=== PATIENT | male | born 1970 | race Caucasian/White ===

== ENCOUNTER → 2023-03-06 | Emergency (ER) | payer BC, SELFPAY ==
[~2023-03-06] MED LIST: COLCHICINE 0.6 MG TAB ONE; HYDROCODONE/APAP 10/325 TAB ONE; dexAMETHasone 10 MG/ML VIAL ONE
--- OUTSIDE RECORDS SUMMARY | 2023-03-06 06:44 | XMS REPORT | Continuity of Care Document ---
Author Name Unknown Address [address] [facility] [place] [address] [facility] Address [address] 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 Name Role Phone JENNIFER ARELLANO Primary Care Physician Unavailab ARNIE Pablo V Attending Clinician Unavailable RADIOLOGY Attending Clinician Unavailable Radiology Attending Clinician Unavailable ARNIE SMITH V Admitting Clinician Unavailable Payers Payer Name Policy Type Policy Number Effective Date Expirati on Date Source [facility] [id number] 2019 00:00:00 Allergies, Adverse Reactions, Alerts Allergy Name Allergy Type Status Severity Reaction(s) Onset Date Inactive Date Treating Clinician Comments Source NO KNOWN ALLERGIE S Drug Class Active [facility] Social History Social Habit Start Date Stop Date Quantity Comments Source Sex Assigned At [facility] Exposure to SARS-CoV-2 (event) Not sure [facility] Alcohol intake 2015-01-20 00:00:00 2015-01-20 00:00:00 [facility] Tobacco Comment 2015-01-20 00:00:00 2015-01-20 00:00:00 now uses vapor cigarettes [facility] Smoking Status Start Date Stop Date Source Former smoker 2015-01-20 00:00:00 2015-01-20 00:00:00 [facility] Medications Ordered Medication Name Filled Medication Name Start Date Stop Date Current Medication? Ordering Clinician Indication Dosage Frequency Signature (SIG) Comments Components Source No known medications No [facility] Encounters Start Date/Time End Date/Time Encounter Type Admission Type Attending Clinicians Care Facility Care Department Encounter ID Source 2018-03-03 10:00:00 Inpatient [facility]NIE GARCIA [facility] [id number] [facility] 2022-09-30 08:16:24 2022-09-30 08:16:24 Outpatient [facility] [id number] Jamaal Hollins 2022-03-14 15:57:12 2022-03-14 15:57:12 Outpatient [facility] [id number] Jamaal Hollins 2019-09-22 16:00:00 2019-09-22 16:00:00 Outpatient R RADIOLOGY [facility] [id number] [facility] 2019-09-22 15:51:28 2019-09-22 15:51:28 Outpatient R RADIOLOGY [facility] [id number] [facility] 2019-09-06 14:25:00 2019-09-06 23:59:00 Hospital Encounter Radiology [facility] [id number] 2019-09-06 14:25:00 2019-09-06 23:59:00 Hospital Encounter Radiology [facility] [id number] [facility] 2019-09-06 00:00:00 2019-09-06 23:59:00 Outpatient R RADIOLOGY [facility] [id number] [facility] Results Test Description Test Time Test Comments Results Result Co mments Source LIPID [id number] 06:33:37* Test Item Value Reference Range Interpretation Comme nts CHOLESTEROL (test code = 2210) 230 MG/DL <200 H TRIGLYCERIDES (test code = 2232) 647 MG/DL <150 H HDL CHOLESTEROL (test code = 2220) 30 MG/DL >39 L CALC LDL CHOL (test code = 2237) (NOTE) MG/DL <100 UNABLE TO CALCUL ATE A VALID LDL CHOLESTEROL WHEN THE TRIGLYCERIDEVALUE IS GREATER THAN 400 MG/DL.UNABLE TO CALCULATE A VALID LDL CHOLESTEROL WHEN THE TRIGLYCERIDEVALUE IS GREATER THAN 400 MG/DL. NOTE: CALCULATED LDL IS BASED ON FILIBERTO-TUCKER METHOD WHICHINCLUDES ADJUSTABLE TRIGLYCERIDE:VLDL CHOLESTEROL RATIO.THIS FACTOR VARIES BY MEASURED TRIGLYCERIDE AND NON-HDLCHOLESTEROL CONCENTRATIONS WITH INCREASED CALCULATED LDL SEENIN HIGHER TRIGLYCERIDE OR LOWER NON-HDL SPECIMENS. FOR MOREINFORMATION, SEE CLIENT ANNOUNCEMENT AT [email or web address] CalcLDL-C RISK RATIO LDL/HDL (test code = 2238) (NOTE) RATIO <3.55 UNABLE TO DELROY CULATE PSA, [id number] 06:14:09* Test Item Value Reference Range Interpretation Comme nts PSA, TOTAL (test code = 2606) 0.21 NG/ML See_Comment NOTE: Methodolog y is Leobardo Samuel Electrochemiluminescence Immunoassay traceable to WHO reference standard 96/760. [Automated message] The system which generated this result transmitted reference range: <=4.00. The reference range was not used to interpret this result as normal/abnormal. TSH, THIRD [id number] 06:14:09* Test Item Value Reference Range Interpretation Comme nts TSH, THIRD GENERATION (test code = 2821) 2.120 UIU/ML 0.400-4.100 UNLESS OTHERWISE INDICATED, ALL TESTING PERFORMED AT [facility] [address] [place] [address] MOBILE NURSE: LUCIE VELEZ M.D. CLIA NUMBER [id number] [facility] [place] [id number] HEMOGLOBIN [id number] 03:04:26* Test Item Value Reference Range Interpretation [facility] HEMOGLOBIN A1c (test code = 86885) 10.2 % 4.2-5.6 H CITIZEN [place] [employer] [employer] GUIDELINES FOR HGB A1C: PREDIABETES/INCREASED RISK . . . . . . . 5.7-6.4% DIAGNOSIS OF DIABETES . . . . . . . . . >=6.5% WITH CONFIRMATION OR APPROPRIATE SYMPTOMS NOTE: ASSAY MAY BE AFFECTED BY HEMOGLOBINOPATHIES (SICKLE CELL ANEMIA, S-C DISEASE, OTHERS) OR ARTIFICIALLY LOWERED BY DECREASED RED CELL SURVIVAL (HEMOLYTIC ANEMIAS, BLOOD LOSS, ETC.). CONSIDER ALTERNATE TESTING OR LABORATORY CONSULTATION. TSH, THIRD [id number] 02:40:51* Test Item Value Reference Range Interpretation Comme nts TSH, THIRD GENERATION (test code = 2821) 2.570 UIU/ML 0.400-4.100 UNLESS OTHERWISE INDICATED, ALL [facility] PERFORMED [facility] [address] [facility] [place] [address] MOBILE NURSE: DARREN VILLALOBOS M.D. CLIA NUMBER [id number] [facility] [place]. [id number] LIPID [id number] 23:37:35* Test Item Value Reference Range Interpretation Comme nts CHOLESTEROL (test code = 2210) 295 MG/DL <200 H TRIGLYCERIDES (test code = 2232) 475 MG/DL <150 H HDL CHOLESTEROL (test code = 2220) 32 MG/DL >39 L CALC LDL CHOL (test code = 2237) (NOTE) MG/DL <100 UNABLE TO CALCUL ATE A VALID LDL CHOLESTEROL WHEN THE TRIGLYCERIDEVALUE IS GREATER THAN 400 MG/DL.UNABLE TO CALCULATE A VALID LDL CHOLESTEROL WHEN THE TRIGLYCERIDEVALUE IS GREATER THAN 400 MG/DL. NOTE: CALCULATED LDL IS BASED ON FILIBERTO-TUCKER METHOD WHICHINCLUDES ADJUSTABLE TRIGLYCERIDE:VLDL CHOLESTEROL RATIO.THIS FACTOR VARIES BY MEASURED TRIGLYCERIDE AND NON-HDLCHOLESTEROL CONCENTRATIONS WITH INCREASED CALCULATED LDL SEENIN HIGHER TRIGLYCERIDE OR LOWER NON-HDL SPECIMENS. FOR MOREINFORMATION, SEE CLIENT ANNOUNCEMENT AT [email or web address] CalcLDL-C RISK RATIO LDL/HDL (test code = 223) (NOTE) RATIO <3.55 UNABLE TO [place]ROY CULATE COMPREHENSIVE METABOLIC [id number] 23:37:35* Test Item Value Reference Range Interpretation Comme nts GLUCOSE (test code = 2217) 188 MG/DL 70-99 H BUN (test code = 2208) 19 MG/DL 6-20 CREATININE (test code = 2214) 0.98 MG/DL 0.80-1.40 eGFR (2020 CKD-EPI) (test code = 74138) 95 ML/MIN/1.73 >60 CALC BUN/CREAT (test code = 2235) 19 RATIO 6-28 SODIUM (test code = 223) 139 MEQ/L 133-146 POTASSIUM (test code = 2228) 4.2 MEQ/L 3.5-5.4 CHLORIDE (test code = 2215) 98 MEQ/L 95-107 CARBON DIOXIDE (test code = 2206) 24 MEQ/L 19-31 CALCIUM (test code = 2209) 9.3 MG/DL 8.5-10.5 PROTEIN, TOTAL (test code = 2228) 6.5 G/DL 6.1-8.3 ALBUMIN (test code = 2201) 4.3 G/DL 3.5-5.2 CALC GLOBULIN (test code = 2240) 2.2 G/DL 1.9-3.7 CALC A/G RATIO (test code = 2233) 2.0 RATIO 1.0-2.6 BILIRUBIN, TOTAL (test code = 2206) 0.4 MG/DL See_Comment [Automated ia ssage] The system which generated this result transmitted reference range: <=1.2. The reference range was not used to interpret this result as normal/abnormal. ALKALINE PHOSPHATASE (test code = 2203) 80 U/L 40-118 AST (test code = 2217) 26 U/L 9-50 ALT (test code = 2219) 40 U/L 5-50 CBC W/AUTO DIFF WITH [id number] 05:55:12* Test Item Value Reference Range Interpretation Comme nts WBC (test code = 1001) 5.8 K/UL 3.5-11.0 RBC (test code = 1002) 5.87 M/UL 4.50-6.10 HEMOGLOBIN (test code = 1003) 17.4 G/DL 13.5-17.0 H HEMATOCRIT (test code = 1004) 50.5 % 40.0-51.0 MCV (test code = 1005) 86.0 fL 80.0-99.0 MCH (test code = 1006) 29.6 PG 25.0-33.0 MCHC (test code = 1007) 34.5 G/DL 31.0-36.0 RDW (test code = 1038) 12.6 % 11.5-15.0 NEUTROPHILS (test code = 1008) 57.6 % LYMPHOCYTES (test code = 1010) 31.9 % MONOCYTES (test code = 1011) 6.9 % EOSINOPHILS (test code = 1012) 2.4 % BASOPHILS (test code = 1013) 0.9 % IMMATURE GRANULOCYTES (test code = 1036) 0.3 % NUCLEATED RBCS (test code = 1065) 0.0 /100 WBC'S See_Comment [Automated messa ge] The system which generated this result transmitted reference range: 0.0. The reference range was not used to interpret this result as normal/abnormal. PLATELET COUNT (test code = 1015) 200 K/UL 130-400 ABSOLUTE NEUTROPHILS (test code = 1066) 3.32 K/UL 1.50-7.50 ABSOLUTE LYMPHOCYTES (test code = 1067) 1.84 K/UL 1.00-4.00 ABSOLUTE MONOCYTES (test code = 1068) 0.40 K/UL 0.20-1.00 ABSOLUTE EOSINOPHILS (test code = 1040) 0.14 K/UL 0.00-0.50 ABSOLUTE BASOPHILS (test code = 1069) 0.05 K/UL 0.00-0.20 ABS IMMATURE GRANULOCYTES (test code = 1020) 0.02 K/UL 0.00-0.10 ABS NUCLEATED RBCS (test code = 93613) 0.00 K/UL 0.00-0.11 HEMOGLOBIN [id number] 05:02:36* Test Item Value Reference Range Interpretation [facility] HEMOGLOBIN A1c (test code = 26567) 9.5 % 4.2-5.6 H CITIZEN [place] [employer] [employer] GUIDELINES FOR HGB A1C: PREDIABETES/INCREASED RISK . . . . . . . 5.7-6.4% DIAGNOSIS OF DIABETES . . . . . . . . . >=6.5% WITH CONFIRMATION OR APPROPRIATE SYMPTOMS NOTE: ASSAY MAY BE AFFECTED BY HEMOGLOBINOPATHIES (SICKLE CELL ANEMIA, S-C DISEASE, OTHERS) OR ARTIFICIALLY LOWERED BY DECREASED RED CELL SURVIVAL (HEMOLYTIC ANEMIAS, BLOOD LOSS, ETC.). CONSIDER ALTERNATE TESTING OR LABORATORY CONSULTATION. TSH, THIRD [id number] 01:37:08* Test Item Value Reference Range Interpretation Com[facility] TSH, THIRD GENERATION (test code = 2821) 4.800 UIU/ML 0.400-4.100 H LIPID [id number] 23:54:01* Test Item Value Reference Range Interpretation Comme nts CHOLESTEROL (test code = 2210) 248 MG/DL <200 H TRIGLYCERIDES (test code = 2232) 413 MG/DL <150 H HDL CHOLESTEROL (test code = 2220) 29 MG/DL >39 L CALC LDL CHOL (test code = 2237) (NOTE) MG/DL <100 UNABLE TO CALCUL ATE A VALID LDL CHOLESTEROL WHEN THE TRIGLYCERIDEVALUE IS GREATER THAN 400 MG/DL.UNABLE TO CALCULATE A VALID LDL CHOLESTEROL WHEN THE TRIGLYCERIDEVALUE IS GREATER THAN 400 MG/DL. NOTE: CALCULATED LDL IS BASED ON FILIBERTO-TUCKER METHOD WHICHINCLUDES ADJUSTABLE TRIGLYCERIDE:VLDL CHOLESTEROL RATIO.THIS FACTOR VARIES BY MEASURED TRIGLYCERIDE AND NON-HDLCHOLESTEROL CONCENTRATIONS WITH INCREASED CALCULATED LDL SEENIN HIGHER TRIGLYCERIDE OR LOWER NON-HDL SPECIMENS. FOR MOREINFORMATION, SEE CLIENT ANNOUNCEMENT AT [email or web address] CalcLDL-C RISK RATIO LDL/HDL (test code = 2238) (NOTE) RATIO <3.55 UNABLE TO DELROY CULATE HEMOGLOBIN [id number] 03:21:27* Test Item Value Reference Range Interpretation Com[facility] HEMOGLOBIN A1c (test code = 54094) 7.8 % 4.2-5.6 H CITIZEN [place] [employer] GUIDELINES FOR HGB A1C: PREDIABETES/INCREASED RISK . . . . . . . 5.7-6.4% DIAGNOSIS OF DIABETES . . . . . . . . . >=6.5% WITH CONFIRMATION OR APPROPRIATE SYMPTOMS NOTE: ASSAY MAY BE AFFECTED BY HEMOGLOBINOPATHIES (SICKLE CELL ANEMIA, S-C DISEASE, OTHERS) OR ARTIFICIALLY LOWERED BY DECREASED RED CELL SURVIVAL (HEMOLYTIC ANEMIAS, BLOOD LOSS, ETC.). CONSIDER ALTERNATE TESTING OR LABORATORY CONSULTATION. UNLESS OTHERWISE INDICATED, ALL TESTING PERFORMED [facility] [address] [place] [address] MOBILE NURSE: DARREN VILLALOBOS M.D. CLIA NUMBER [id number] [facility] [place] [id number] HEMOGLOBIN [id number] 07:15:04* Test Item Value Reference Range Interpretation Com[facility] HEMOGLOBIN A1c (test code = 12568) 7.9 % 4.2-5.6 H CITIZEN [place] [employer] GUIDELINES FOR HGB A1C: PREDIABETES/INCREASED RISK . . . . . . . 5.7-6.4% DIAGNOSIS OF DIABETES . . . . . . . . . >=6.5% WITH CONFIRMATION OR APPROPRIATE SYMPTOMS NOTE: ASSAY MAY BE AFFECTED BY HEMOGLOBINOPATHIES (SICKLE CELL ANEMIA, S-C DISEASE, OTHERS) OR ARTIFICIALLY LOWERED BY DECREASED RED CELL SURVIVAL (HEMOLYTIC ANEMIAS, BLOOD LOSS, ETC.). CONSIDER ALTERNATE TESTING OR LABORATORY CONSULTATION. TSH, THIRD [id number] 06:17:48* Test Item Value Reference Range Interpretation Comme nts TSH, THIRD GENERATION (test code = 2821) 4.070 UIU/ML 0.400-4.100 CBC W/AUTO DIFF WITH [id number] 06:03:56* Test Item Value Reference Range Interpretation Comme nts WBC (test code = 1001) 6.1 K/UL 3.5-11.0 RBC (test code = 1002) 5.53 M/UL 4.50-6.10 HEMOGLOBIN (test code = 1003) 16.3 G/DL 13.5-17.0 HEMATOCRIT (test code = 1004) 46.7 % 40.0-51.0 MCV (test code = 1005) 84.4 fL 80.0-99.0 MCH (test code = 1006) 29.5 PG 25.0-33.0 MCHC (test code = 1007) 34.9 G/DL 31.0-36.0 RDW (test code = 1038) 13.5 % 11.5-15.0 NEUTROPHILS (test code = 1008) 49.9 % LYMPHOCYTES (test code = 1010) 40.0 % MONOCYTES (test code = 1011) 6.0 % EOSINOPHILS (test code = 1012) 2.8 % BASOPHILS (test code = 1013) 1.0 % IMMATURE GRANULOCYTES (test code = 1036) 0.3 % NUCLEATED RBCS (test code = 1065) 0.0 /100 WBC'S See_Comment [Automated messa ge] The system which generated this result transmitted reference range: 0.0. The reference range was not used to interpret this result as normal/abnormal. PLATELET COUNT (test code = 1015) 205 K/UL 130-400 ABSOLUTE NEUTROPHILS (test code = 1066) 3.06 K/UL 1.50-7.50 ABSOLUTE LYMPHOCYTES (test code = 1067) 2.45 K/UL 1.00-4.00 ABSOLUTE MONOCYTES (test code = 1068) 0.37 K/UL 0.20-1.00 ABSOLUTE EOSINOPHILS (test code = 1040) 0.17 K/UL 0.00-0.50 ABSOLUTE BASOPHILS (test code = 1069) 0.06 K/UL 0.00-0.20 ABS IMMATURE GRANULOCYTES (test code = 1020) 0.02 K/UL 0.00-0.10 ABS NUCLEATED RBCS (test code = 54303) 0.00 K/UL 0.00-0.11 COMPREHENSIVE METABOLIC [id number] 05:55:49* Test Item Value Reference Range Interpretation Comme nts GLUCOSE (test code = 2216) 134 MG/DL 70-99 H BUN (test code = 2207) 15 MG/DL 6-20 CREATININE (test code = 2213) 1.04 MG/DL 0.80-1.40 eGFR (2020 CKD-EPI) (test code = 93598) 88 ML/MIN/1.73 >60 CALC BUN/CREAT (test code = 2234) 14 RATIO 6-28 SODIUM (test code = 2230) 140 MEQ/L 133-146 POTASSIUM (test code = 2227) 4.5 MEQ/L 3.5-5.4 CHLORIDE (test code = 2214) 98 MEQ/L 95-107 CARBON DIOXIDE (test code = 2205) 27 MEQ/L 19-31 CALCIUM (test code = 2208) 9.5 MG/DL 8.5-10.5 PROTEIN, TOTAL (test code = 2228) 6.9 G/DL 6.1-8.3 ALBUMIN (test code = 2200) 4.3 G/DL 3.5-5.2 CALC GLOBULIN (test code = 2240) 2.6 G/DL 1.9-3.7 CALC A/G RATIO (test code = 2233) 1.7 RATIO 1.0-2.6 BILIRUBIN, TOTAL (test code = 2206) 0.3 MG/DL See_Comment [Automated me ssage] The system which generated this result transmitted reference range: <=1.2. The reference range was not used to interpret this result as normal/abnormal. ALKALINE PHOSPHATASE (test code = 2203) 78 U/L 40-118 AST (test code = 8) 25 U/L 9-50 ALT (test code = 2219) 70 U/L 5-50 H LIPID [id number] 05:55:49* Test Item Value Reference Range Interpretation Comme nts CHOLESTEROL (test code = 2210) 250 MG/DL <200 H TRIGLYCERIDES (test code = 2232) 203 MG/DL <150 H HDL CHOLESTEROL (test code = 2220) 31 MG/DL >39 L CALC LDL CHOL (test code = 223) 183 MG/DL <100 H NOTE: CALCULATED LDL IS BASED ON FILIBERTO-TUCKER METHOD WHICHINCLUDES ADJUSTABLE TRIGLYCERIDE:VLDL CHOLESTEROL RATIO.THIS FACTOR VARIES BY MEASURED TRIGLYCERIDE AND NON-HDLCHOLESTEROL CONCENTRATIONS WITH INCREASED CALCULATED LDL SEENIN HIGHER TRIGLYCERIDE OR LOWER NON-HDL SPECIMENS. FOR MOREINFORMATION, SEE CLIENT ANNOUNCEMENT AT [email or web address] RISK RATIO LDL/HDL (test code = 2238) 5.90 RATIO <3.55 H URIC [id number] 05:55:49* Test Item Value Reference Range Interpretation Comme nts URIC ACID (test code = 2233) 9.4 MG/DL 3.7-8.0 H UNLESS OTHERWISE INDICATED, ALL TESTING [facility]MED [facility] [address] [place] [address], [place] [address] MOBILE NURSE: DARREN VILLALOBOS M.D. CLIA NUMBER [id number] [facility] [place] [id number]
--- NOTE | 2023-03-06 08:18 | ER ---
Nurse's Notes [facility] Name: Kaden Thomas Age: 52 yrs Sex: Male : 1970 Arrival Date: 03/06/2023 Time: 06:41 Bed 12 Private MD: Diagnosis: Gout, unspecified Presentation: 03/06 07:00 Chief complaint: Patient states: he woke up this morning with right foot pain. patient ap3 denies any recent trauma to the foot. patient rates the pain as a 10/10 on the pain scale. Coronavirus screen: At this time, the client does not indicate any symptoms associated with coronavirus-19. Ebola Screen: No symptoms or risks identified at this time. Initial Sepsis Screen: Does the patient meet any 2 criteria? No. Patient's initial sepsis screen is negative. Does the patient have a suspected source of infection? No. Patient's initial sepsis screen is negative. Risk Assessment: Do you want to hurt yourself or someone else? Patient reports no desire to harm self or others. Onset of symptoms was March 06, 2023. 07:00 Method Of Arrival: Wheelchair ap3 07:00 Acuity: ROSLYN 4 ap3 Triage Assessment: 07:02 General: Appears in no apparent distress. Behavior is calm, cooperative. Pain: ap3 Complains of pain in right foot Pain currently is 10 out of 10 on a pain scale. Neuro: Level of Consciousness is awake, alert, obeys commands, Oriented to person, place, time, situation. Cardiovascular: Patient's skin is warm and dry. Respiratory: Airway is patent Respiratory effort is even, unlabored, Respiratory pattern is regular, symmetrical. Historical: - Allergies: 07:01 PENICILLINS; ap3 07:01 Clindamycin; ap3 07:01 Keflex; ap3 - PMHx: 07:01 Hypertensive disorder; Diabetes mellitus; ap3 - PSHx: 07:01 kidney removed at 5 years; ap3 - Immunization history:: Client reports having NOT received the Covid vaccine. Flu vaccine is not up to date. - Social history:: Smoking status: Reported history of juuling and/or vaping. - Family history:: not pertinent. - Hospitalizations: : No recent hospitalization is reported. Screenin:03 [facility] ED Fall Risk Assessment (Adult) History of falling in the last 3 months, ap3 including since admission No falls in past 3 months (0 pts). Abuse screen: Denies threats or abuse. Nutritional screening: No deficits noted. Tuberculosis screening: No symptoms or risk factors identified. Assessment: 08:06 Reassessment: Patient and/or family updated on plan of care and expected duration. Pain ap3 level reassessed. Patient is alert, oriented x 3, equal unlabored respirations, skin warm/dry/pink. Vital Signs: 07:00 BP 142 / 102; Pulse 81; Resp 17; Temp 98.1; Pulse Ox 94% ; Weight 163.75 kg; Height 6 ap3 ft. 3 in. ; Pain 10/10; 08:36 Pulse 77; Temp 97.7; Pulse Ox 100% ; ap3 07:00 Body Mass Index 45.12 (163.75 kg, 190.5 cm) ap3 07:00 Pain Scale: Adult ap3 ED Course: 06:44 Patient arrived in ED. ts1 07:00 Mike Churchill MD is Attending Physician. rn 07:01 Triage completed. ap3 07:03 Arm band placed on right wrist. ap3 08:17 Josy Baldwin, SHAHAB is Primary Nurse. ap3 08:38 Provided Education on: discharge instructions. ap3 08:38 Patient has correct armband on for positive identification. Bed in low position. Call ap3 light in reach. Adult w/ patient. 08:38 No provider procedures requiring assistance completed. Patient did not have IV access ap3 during this emergency room visit. Administered Medications: 07:41 Drug: Dexamethasone IM 10 mg IM once Route: IM; Site: right deltoid; ap3 08:26 Follow up: Response: No adverse reaction ap3 07:42 Drug: Colchicine-Probenecid PO 2 tabs PO once Route: PO; ap3 08:26 Follow up: Response: No adverse reaction ap3 07:42 Drug: [place] PO 10 mg-325 mg 1 tabs PO once Route: PO; ap3 08:26 Follow up: Response: No adverse reaction; Pain is decreased ap3 Medication: 08:38 VIS not applicable for this client. ap3 Outcome: 08:17 Discharge ordered by . rn 08:37 Patient left the ED. ap3 08:38 Discharged to home with family, ap3 08:38 Condition: good 08:38 Discharge instructions given to patient, Instructed on discharge instructions, follow up and referral plans. Demonstrated understanding of instructions, follow-up care, medications, Prescriptions given X 2, Signatures: Mike Churchill MD MD rn Josy Baldwin RN RN ap3 Bre Presley PAS PAS ts1 Corrections: (The following items were deleted from the chart) 07:02 07:01 Allergies: Sulfa (Sulfonamide Antibiotics); ap3 ap3
--- NOTE | 2023-03-06 08:18 | EDPHYS ---
Physician Documentation [facility] Name: Kaden Thomas Age: 52 yrs Sex: Male : 1970 Arrival Date: 03/06/2023 Time: 06:41 Bed 12 Private MD: ED Physician Mike Churchill HPI: 03/06 07:37 This 52 yrs old Male presents to ER via Wheelchair with complaints of Foot Pain. rn 07:37 The patient presents with pain, that is acute. The complaints affect the right foot. rn Onset: The symptoms/episode began/occurred this morning. Modifying factors: The symptoms are alleviated by nothing, the symptoms are aggravated by weight bearing, movement. Severity of symptoms: At their worst the symptoms were moderate, in the emergency department the symptoms are unchanged. The patient has not experienced similar symptoms in the past. The patient has not recently seen a physician. Pt reports right foot pain, identical pain in past, has gout, no trauma, no fever or chills. Does not take his allopurinol anymore. . Historical: - Allergies: 07:01 PENICILLINS; ap3 07:01 Clindamycin; ap3 07:01 Keflex; ap3 - PMHx: 07:01 Hypertensive disorder; Diabetes mellitus; ap3 - PSHx: 07:01 kidney removed at 5 years; ap3 - Immunization history:: Client reports having NOT received the Covid vaccine. Flu vaccine is not up to date. - Social history:: Smoking status: Reported history of juuling and/or vaping. - Family history:: not pertinent. - Hospitalizations: : No recent hospitalization is reported. ROS: 07:37 Constitutional: Negative for fever, chills, and weight loss, Cardiovascular: Negative rn for chest pain, palpitations, and edema, Respiratory: Negative for shortness of breath, cough, wheezing, and pleuritic chest pain, MS/Extremity: Positive for right foot pain Skin: Negative for injury, rash, and discoloration, Neuro: Negative for headache, weakness, numbness, tingling, and seizure, Exam: 07:37 Constitutional: This is a well developed, well nourished patient who is awake, alert, rn and in no acute distress. Cardiovascular: Regular rate and rhythm. No pulse deficits. MS/ Extremity: Pulses equal, no cyanosis. Neurovascular intact. No erythema or streaking. No fluctuance. No open wounds. No focal bony tenderness Vital Signs: 07:00 BP 142 / 102; Pulse 81; Resp 17; Temp 98.1; Pulse Ox 94% ; Weight 163.75 kg; Height 6 ap3 ft. 3 in. ; Pain 10/10; 08:36 Pulse 77; Temp 97.7; Pulse Ox 100% ; ap3 07:00 Body Mass Index 45.12 (163.75 kg, 190.5 cm) ap3 07:00 Pain Scale: Adult ap3 MDM: 07:00 Patient medically screened. rn 08:16 Differential diagnosis: arthritis, gout. Data reviewed: vital signs, nurses notes, and rn as a result, I will discharge patient. Care significantly affected by the following chronic conditions: Gout. Counseling: I had a detailed discussion with the patient and/or guardian regarding the historical points, exam findings, and any diagnostic results supporting the discharge/admit diagnosis, the need for outpatient follow up, to return to the emergency department if symptoms worsen or persist or if there are any questions or concerns that arise at home. Response to treatment: the patient's symptoms have mildly improved after treatment, and as a result, I will discharge patient. Special discussion: I discussed with the patient/guardian in detail that at this point there is no indication for admission to the hospital. It is understood, however, that if the symptoms persist or worsen the patient needs to return immediately for re-evaluation. Based on the history and exam findings, there is no indication for further emergent testing or inpatient evaluation. I discussed with the patient/guardian the need to see the primary care provider for further evaluation of the symptoms. ED course: Pain identical to previous gout flare, starting to feel better, declines morphine, will DC home with pain medication and steroids. Will follow-up with PCP for further gout management. Return precautions given and understood. Administered Medications: 07:41 Drug: Dexamethasone IM 10 mg IM once Route: IM; Site: right deltoid; ap3 08:26 Follow up: Response: No adverse reaction ap3 07:42 Drug: Colchicine-Probenecid PO 2 tabs PO once Route: PO; ap3 08:26 Follow up: Response: No adverse reaction ap3 07:42 Drug: [place] PO 10 mg-325 mg 1 tabs PO once Route: PO; ap3 08:26 Follow up: Response: No adverse reaction; Pain is decreased ap3 Disposition Summary: 03/06/23 08:17 Discharge Ordered Notes: Location: Home rn Problem: an acute exacerbation rn Symptoms: have improved rn Condition: Stable rn Diagnosis - Gout, unspecified rn Followup: rn - With: Private Physician - When: As needed - Reason: Recheck today's complaints, Re-evaluation by your physician Discharge Instructions: - Discharge Summary Sheet rn - Gout rn Forms: - Medication Reconciliation Form rn - Thank You Letter 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
[2023-03-06 09:38] VITALS: BP 142/102
[2023-03-06 09:44] VITALS: TEMP 97.7; O2SAT 100
== END ==
LOC: ER 06:41
DX: M10.9 Gout, unspecified (principal)
CPT/HCPCS: 96372; 99284; J1100